=== PATIENT | female | born 2000 | race Caucasian/White ===

== ENCOUNTER 2023-02-13 15:55 | Inpatient (IN) | payer MEDICAID ==
[~2023-02-13] VITALS: Ht 149.9 cm; Wt 82.1 kg
[2023-02-13] MEDS ORDERED: LIDOCAINE HCL 1% 20ML VIAL (Pyxis) INJ INFIL SCH (17:15)
[2023-02-13] MEDS ORDERED: METHYLERGONOVINE MALEATE 0.2 MG/ML IM PRN (17:15)
[2023-02-13] MEDS: LACTATED RINGERS 1,000 ML IV SCH (17:54)
[2023-02-13 18:28] LABS: CLARITY URINE CLOUDY (CLEAR); COLOR URINE YELLOW (YELLOW); GLUCOSE URINE NEGATIVE (NEGATIVE); KETONES URINE NEGATIVE (NEGATIVE); LEUKOCYTE ESTERASE URINE 3+ (NEGATIVE); NITRITE URINE NEGATIVE (NEGATIVE); OCCULT BLOOD URINE NEGATIVE (NEGATIVE); PH URINE 6.5 (4.5-8.0); PROTEIN URINE NEGATIVE (NEGATIVE); SPECIFIC GRAVITY URINE 1.015 (1.005-1.030); UROBILINOGEN URINE 0.2 E.U./dL (0.2-1.0)
[2023-02-13 18:29] LABS: BASOPHILS % 0.6 % (0.0-2.0); HEMATOCRIT. 35.4 % (36.0-48.0); HEMOGLOBIN. 11.9 g/dL (12.0-16.0); MEAN CORPUSCULAR HEMOGLOBIN 30.9 pg (28.0-32.0); MEAN CORPUSCULAR HGB CONC 33.5 g/dL (31.0-37.0); MEAN CORPUSCULAR VOLUME 92.3 fL (81.0-99.0); MEAN PLATELET VOLUME 9.1 fl (7.4-10.4); MONOCYTES % 4.8 % (2.0-8.0); NEUTROPHILS % 71.6 % (40.0-76.0); PLATELET 321 x1000/uL (130-400); RED BLOOD CELL COUNT 3.83 mill/uL (4.2-5.4); RED CELL DISTRIBUTION WIDTH 16.1 % (11.6-14.6); WHITE BLOOD COUNT 7.9 x1000/uL (4.5-11.0)
[2023-02-13] MEDS ORDERED: PENICILLIN G POTASSIUM 5 MMU in DEXT 5% WATER 100 ML IV NR (18:30)
[2023-02-13 18:41] LABS: *AMPHETAMINES SCREEN URINE NEGATIVE (NEGATIVE); *BARBITURATES SCREEN URINE NEGATIVE (NEGATIVE); *BENZODIAZEPINES SCREEN URINE NEGATIVE (NEGATIVE); *COCAINE SCREEN URINE NEGATIVE (NEGATIVE); CANNABINOID URINE SCREEN NEGATIVE (NEGATIVE); ECSTASY MDMA SCREEN URINE NEGATIVE (NEGATIVE); METHADONE URINE SCREEN NEGATIVE (NEGATIVE); OPIATES URINE SCREEN NEGATIVE (NEGATIVE); PHENCYCLIDINE URINE SCREEN NEGATIVE (NEGATIVE)
[2023-02-13 18:52] LABS: BACTERIA URINE 3+; RBC URINE 0-2 /hpf (0-2); SQUAMOUS EPITHELIAL CELL URINE 2+ /lpf (RARE/1+)
[2023-02-13 18:53] LABS: WBC URINE 15-25 /hpf (0-2)
[2023-02-13 18:55] LABS: PARTIAL THROMBOPLASTIN TIME 29.7 sec (23.4-31.0); PROTHROMBIN TIME 10.6 sec (9.6-11.0)
[2023-02-13 19:02] LABS: HEPATITIS B SURFACE ANTIGEN NEGATIVE
[2023-02-13 19:09] LABS: RUBELLA IGG 61.9 IU/mL (4.99-10)
[2023-02-13 19:57] LABS: RAPID HIV SCREEN NEGATIVE (NEGATIVE)
[2023-02-13] MEDS ORDERED: MISOPROSTOL 100MCG TABLET VG PRN (20:00)
[2023-02-13] MEDS ORDERED: MEPERIDINE HCL/PF 50MG/ML CPJ IV PRN (21:45)
[2023-02-13] MEDS ORDERED: MEPERIDINE HCL/PF 50MG/ML CPJ IM PRN (21:45)
[2023-02-13] MEDS: OXYTOCIN 30 UNITS/500ML NS PMX 500 ML IV SCH (22:22)
[2023-02-14] MEDS: LACTATED RINGERS 1,000 ML IV SCH ×5 (00:48→23:07)
[2023-02-14] MEDS: PENICILLIN G POTASSIUM 2.5 MMU in DEXTROSE 5% WATER 50 ML IV SCH ×5 (06:03→23:25)
[2023-02-14] MEDS ORDERED: ROPIVACAINE HCL/PF EPIDURAL 200 ML EPI SCH (07:15)
[2023-02-14] MEDS ORDERED: FENTANYL CITRATE/PF 50MCG/ML 2ML VIAL ONE ×3 (07:28→18:28)
[2023-02-15] MEDS ORDERED: ONDANSETRON HCL 4MG/2ML INJ ONE ×2 (02:25→03:52)
[2023-02-15] MEDS ORDERED: OXYTOCIN 10 UNITS/ML 1ML ONE (02:25)
[2023-02-15] MEDS ORDERED: MORPHINE SULFATE/PF 1MG/ML 10ML AMP ONE (02:25)
[2023-02-15] MEDS ORDERED: CEFAZOLIN SODIUM 1000MG/VIAL ONE (02:26)
[2023-02-15] MEDS ORDERED: FENTANYL CITRATE/PF 50MCG/ML 2ML VIAL ONE ×2 (02:26→03:59)
[2023-02-15] MEDS ORDERED: TRANEXAMIC ACID 10 ML ONE (03:19)
[2023-02-15] MEDS ORDERED: MIDAZOLAM HCL 2 MG/2 ML VIAL ONE (03:21)
[2023-02-15] MEDS ORDERED: KETAMINE HCL 50 MG/ML 10ML ONE (03:24)
[2023-02-15] MEDS ORDERED: KETOROLAC 60MG/2ML VIAL IM ONE (03:49)
[2023-02-15] MEDS ORDERED: DIPHENHYDRAMINE 50MG/ML VIAL IV PRN (04:30)
[2023-02-15] MEDS ORDERED: NALOXONE HCL 0.4 MG/ML 1ML VIAL IV PRN (04:30)
[2023-02-15 05:33] VITALS: BP 135/79; PULSE 81; RESP 18; TEMP 99.2; O2SAT 98
[2023-02-15] MEDS ORDERED: ONDANSETRON HCL 4MG/2ML INJ IV PRN (06:15)
[2023-02-15] MEDS ORDERED: OXYTOCIN 30 UNITS/500ML NS PMX 500 ML IV SCH (06:15)
[2023-02-15] MEDS ORDERED: DIPHENHYDRAMINE 25MG CAPSULE PO PRN (06:15)
[2023-02-15] MEDS ORDERED: RHO(D) IMMUNE GLOBULIN 300 MCG/SYR IM PRN (06:15)
[2023-02-15] MEDS ORDERED: IBUPROFEN 400MG TABLET PO PRN (06:15)
[2023-02-15] MEDS ORDERED: HEMORRHOIDAL SUPP PR PRN (06:15)
[2023-02-15] MEDS ORDERED: BISACODYL 10MG SUPP PR PRN (06:15)
[2023-02-15] MEDS: KETOROLAC 30MG/ML VIAL IV SCH ×3 (07:09→20:03)
[2023-02-15] MEDS: MAGNESIUM/ALUMINUM HYDROXIDE/SIMETHICONE 30ML UDC PO SCH ×4 (07:50→20:04)
[2023-02-15] MEDS: OXYTOCIN 30 UNITS/500ML NS PMX 500 ML IV SCH (07:52)
[2023-02-15 08:49] VITALS: O2SAT 97
[2023-02-15] MEDS: PRENATAL VIT/FE FUMARATE/FA TABLET PO SCH (09:00)
[2023-02-15 10:00] VITALS: BP 131/83; PULSE 76; RESP 18; TEMP 99.2
[2023-02-15 14:30] VITALS: BP 90/60; PULSE 87; RESP 18; TEMP 99.8
[2023-02-15 18:00] VITALS: TEMP 99.2
[2023-02-15 19:40] VITALS: BP 106/69; PULSE 89; RESP 18; TEMP 99.1; O2SAT 98
[2023-02-15] MEDS: DOCUSATE SODIUM 100MG CAPSULE PO SCH (20:03)
[2023-02-16 00:01] VITALS: BP 113/70; PULSE 83; RESP 18; TEMP 99
[2023-02-16] MEDS: IBUPROFEN 800MG TABLET PO PRN ×3 (01:00→17:16)
[2023-02-16 04:00] VITALS: BP 122/75; PULSE 86; RESP 18; TEMP 98.4
[2023-02-16] MEDS: ACETAMINOPHEN WITH CODEINE 300/30MG TABLET PO PRN ×2 (04:19→20:50)
[2023-02-16] MEDS: MAGNESIUM/ALUMINUM HYDROXIDE/SIMETHICONE 30ML UDC PO SCH ×4 (07:30→20:49)
[2023-02-16 07:38] LABS: BASOPHILS % 0.2 % (0.0-2.0); EOSINOPHILS % 0.8 % (0.0-5.0); HEMATOCRIT. 27.7 % (36.0-48.0); HEMOGLOBIN. 9.6 g/dL (12.0-16.0); LYMPHOCYTES % 11.5 % (20.0-50.0); MEAN CORPUSCULAR HEMOGLOBIN 31.9 pg (28.0-32.0); MEAN CORPUSCULAR HGB CONC 34.4 g/dL (31.0-37.0); MEAN CORPUSCULAR VOLUME 92.5 fL (81.0-99.0); MEAN PLATELET VOLUME 8.5 fl (7.4-10.4); MONOCYTES % 5.5 % (2.0-8.0); PLATELET 237 x1000/uL (130-400); RED CELL DISTRIBUTION WIDTH 16.5 % (11.6-14.6); WHITE BLOOD COUNT 12.5 x1000/uL (4.5-11.0)
[2023-02-16 08:00] VITALS: BP 112/67; PULSE 74; RESP 18; TEMP 97.8; O2SAT 96
[2023-02-16] MEDS: PRENATAL VIT/FE FUMARATE/FA TABLET PO SCH (09:30)
[2023-02-16 12:00] VITALS: BP 98/53; PULSE 70; RESP 18; TEMP 98.8
[2023-02-16 16:00] VITALS: BP 104/63; PULSE 85; RESP 18; TEMP 98
[2023-02-16 20:00] VITALS: BP 127/79; PULSE 81; RESP 18; TEMP 98.1; O2SAT 99
[2023-02-16] MEDS: DOCUSATE SODIUM 100MG CAPSULE PO SCH (20:49)
[2023-02-17] MEDS: IBUPROFEN 800MG TABLET PO PRN ×4 (01:40→23:05)
[2023-02-17 04:00] VITALS: BP 112/59; PULSE 71; RESP 18; TEMP 98.3
[2023-02-17 07:30] VITALS: BP 117/75; PULSE 80; RESP 18; TEMP 98.1; O2SAT 99
[2023-02-17] MEDS: MAGNESIUM/ALUMINUM HYDROXIDE/SIMETHICONE 30ML UDC PO SCH ×4 (08:12→20:55)
[2023-02-17] MEDS: PRENATAL VIT/FE FUMARATE/FA TABLET PO SCH (08:12)
[2023-02-17 14:48] VITALS: BP 105/59; PULSE 80; RESP 18; TEMP 97.8
[2023-02-17 20:00] VITALS: BP 103/66; PULSE 82; RESP 18; TEMP 98; O2SAT 99
[2023-02-17] MEDS: DOCUSATE SODIUM 100MG CAPSULE PO SCH (20:55)
[2023-02-18 03:40] VITALS: BP 105/66; PULSE 72; RESP 18; TEMP 98.6
[2023-02-18] MEDS: IBUPROFEN 800MG TABLET PO PRN (04:26)
[2023-02-18 07:30] VITALS: O2SAT 98
[2023-02-18] MEDS: MAGNESIUM/ALUMINUM HYDROXIDE/SIMETHICONE 30ML UDC PO SCH (07:30)
[2023-02-18 07:45] VITALS: BP 104/61; PULSE 76; RESP 18; TEMP 98.4
[2023-02-18] MEDS: PRENATAL VIT/FE FUMARATE/FA TABLET PO SCH (08:36)
== END 2023-02-18 14:30 | disposition home or self-care (01) | DRG 540 ==
LOC: 8 EST LDRP 15:55 → OBSVTOIN 15:55 → 8EST 02-15 06:00
PROVIDERS: ADMIT Obstetrics & Gynecology; ATTEND Obstetrics & Gynecology
PROC: 10D00Z1 Extraction of Products of Conception, Low, Open Approach (ICD-10-PCS; principal; 2023-02-15)
DX: O48.0 Post-term pregnancy (principal); O36.63X0 Maternal care for excessive fetal growth, third trimester, not applicable or unspecified; O62.2 Other uterine inertia; Z37.0 Single live birth; Z3A.40 40 weeks gestation of pregnancy; O90.81 Anemia of the puerperium
CPT/HCPCS: 36415; 76805; 76818; 80305; 81003; 85025; 86592; 86703; 86762; 86850; 86900; 87340; 88307; 99281; J0690; J1885; J2175; J2250; J2274; J2405; J2540; J2795; J3010; J3490; J7060; J7120; A4315; J2590

== ENCOUNTER 2023-03-05 11:56 | Emergency (ER) | payer MEDICAID ==
[~2023-03-05] VITALS: Ht 165.1 cm; Wt 77.0 kg
[2023-03-05 12:09] VITALS: BP 103/62; PULSE 108; RESP 20; TEMP 98.6; O2SAT 100
[2023-03-05] MEDS ORDERED: ACET-2708 MT (12:25)
[2023-03-05] MEDS ORDERED: DICL500C MT (12:25)
[2023-03-05 12:28] LABS: HEMATOCRIT. 33.5 % (36.0-48.0); HEMOGLOBIN. 11.1 g/dL (12.0-16.0); MEAN CORPUSCULAR HEMOGLOBIN 30.1 pg (28.0-32.0); MEAN CORPUSCULAR HGB CONC 33.1 g/dL (31.0-37.0); MEAN PLATELET VOLUME 6.9 fl (7.4-10.4); PLATELET 528 x1000/uL (130-400); RED BLOOD CELL COUNT 3.68 mill/uL (4.2-5.4); RED CELL DISTRIBUTION WIDTH 16.5 % (11.6-14.6); WHITE BLOOD COUNT 21.6 x1000/uL (4.5-11.0)
[2023-03-05 12:38] LABS: DIFFERENTIAL COMMENT 1
[2023-03-05 12:41] LABS: CHLORIDE 105 mEq/L (98-107); INDEX HEMOLYSI 1 (1-3); INDEX ICTERIC 1 (1-4); INDEX LIPEMIC 1 (1-3); POTASSIUM 3.2 mEq/L (3.5-5.1); SODIUM 136 mEq/L (136-145)
[2023-03-05 12:48] LABS: ALANINE AMINOTRANSFERASE 17 IU/L (13-61); ASPARTATE AMINOTRANSFERASE 18 IU/L (15-37); BILIRUBIN TOTAL 0.4 mg/dL (0.1-1.0); CALCIUM 8.9 mg/dL (8.5-10.1); CARBON DIOXIDE 25 mEq/L (21-32); CREATININE 0.6 mg/dL (0.6-1.3); GLUCOSE 96 mg/dL (70-105); PROTEIN TOTAL 7.8 g/dL (6.0-8.3); UREA NITROGEN BLOOD 9 mg/dL (7-21)
[2023-03-05 13:39] LABS: ANISOCYTOSIS 1+; PLATELET ESTIMATE INCREASED
== END 2023-03-05 13:58 | disposition home or self-care (01) ==
LOC: ER 12:03
DX: N61.0 Mastitis without abscess (principal); R50.9 Fever, unspecified; Z68.28 Body mass index [BMI] 28.0-28.9, adult; Z98.890 Other specified postprocedural states
CPT/HCPCS: 36415; 76641; 80053; 85025; 99284